=== PATIENT | male | born 1985 | race Caucasian/White ===

== ENCOUNTER 2019-08-29 08:43 | Emergency (ER) | payer SELFPAY ==
--- NOTE | 2019-08-29 09:23 | ER ---
Nurse's Notes [facility] Name: Jerzy Hernandez Age: 34 yrs Sex: Male : 1985 Arrival Date: 08/29/2019 Time: 08:47 Bed 20 Private MD: None, None Diagnosis: Unilateral inguinal hernia, without obstruction or gangrene, recurrent Presentation: 08/29 09:10 Presenting complaint: Patient states: knot on right side of groin that comes out and em can get pushed in, painful when walking, also reports pain in back and right leg, reports he was told it was a hernia. Transition of care: patient was not received from another setting of care. Onset of symptoms was July 30, 2019. Risk Assessment: Do you want to hurt yourself or someone else? Patient reports no desire to harm self or others. Initial Sepsis Screen: Does the patient meet any 2 criteria? No. Patient's initial sepsis screen is negative. Does the patient have a suspected source of infection? No. Patient's initial sepsis screen is negative. Care prior to arrival: None. 09:10 Method Of Arrival: Ambulatory em 09:14 Acuity: NATASHA 4 iw Historical: - Allergies: 09:12 No Known Allergies; em - Home Meds: 09:12 None [Active]; em - PMHx: 09:12 Hernia; em - PSHx: 09:12 None; em - Immunization history:: Adult Immunizations up to date. - Social history:: Smoking status: Patient/guardian denies using tobacco. - Ebola Screening: : Patient negative for fever greater than or equal to 101.5 degrees Fahrenheit, and additional compatible Ebola Virus Disease symptoms Patient denies exposure to infectious person Patient denies travel to an Ebola-affected area in the 21 days before illness onset No symptoms or risks identified at this time. - Family history:: not pertinent. - Hospitalizations: : No recent hospitalization is reported. Screenin:14 Abuse screen: Denies threats or abuse. Nutritional screening: No deficits noted. em Tuberculosis screening: No symptoms or risk factors identified. Fall Risk None identified. Assessment: 09:15 General: Appears in no apparent distress. comfortable, Behavior is calm, cooperative, em Denies fever. Pain: Complains of pain in right femoral area Pain currently is 5 out of 10 on a pain scale. Neuro: Level of Consciousness is awake, alert, obeys commands, Oriented to person, place, time, situation, Appropriate for age. Cardiovascular: Capillary refill < 3 seconds Patient's skin is warm and dry. Respiratory: Airway is patent Respiratory effort is even, unlabored, Respiratory pattern is regular, symmetrical. GI: Abdomen is flat, Bowel sounds present X 4 quads. Abd is soft and non tender X 4 quads. Patient currently denies bloody stool, nausea, vomiting. Derm: Skin is intact, is healthy with good turgor, Skin is pink, warm \T\ dry. Musculoskeletal: Capillary refill < 3 seconds, Range of motion: intact in all extremities. Vital Signs: 09:12 BP 137 / 86; Pulse 88; Resp 18; Temp 98.7(O); Pulse Ox 98% on R/A; Weight 79.38 kg; em Height 6 ft. 2 in. (187.96 cm); Pain 5/10; 09:12 Body Mass Index 22.47 (79.38 kg, 187.96 cm) em ED Course: 08:47 Patient arrived in ED. mr 08:48 None, None is Private Physician. mr 08:49 Leighton Rhodes MD is Attending Physician. rn 08:52 Hever Batres LVN is Primary Nurse. em 09:12 Arm band placed on. em 09:14 Triage completed. iw 09:14 Patient has correct armband on for positive identification. Placed in gown. Bed in low em position. Call light in reach. 09:22 Ramon Shah MD is Referral Physician. rn 09:26 No provider procedures requiring assistance completed. Patient did not have IV access em during this emergency room visit. Administered Medications: No medications were administered Outcome: 09:22 Discharge ordered by . rn 09:26 Discharged to home ambulatory. em 09:26 Condition: good 09:26 Discharge instructions given to patient, Instructed on discharge instructions, follow up and referral plans. Demonstrated understanding of instructions, follow-up care. 09:37 Patient left the ED. em Signatures: Radha Reza mr Hever Batres LVN POT MAKER em Gabriela Cespedes RN RN iw Leighton Rhodes MD MD rn
--- NOTE | 2019-08-29 09:23 | EDPHYS ---
Physician Documentation [facility] Name: Jerzy Hernandez Age: 34 yrs Sex: Male : 1985 Arrival Date: 08/29/2019 Time: 08:47 Bed 20 Private MD: None, None ED Physician Leighton Rhodes HPI: 08/29 09:18 This 34 yrs old Male presents to ER via Ambulatory with complaints of Pelvic rn Pain. 09:18 The patient presents with abdominal pain in the lower abdomen. Onset: The rn symptoms/episode began/occurred 1 month(s) ago. The symptoms do not radiate. Associated signs and symptoms: Pertinent negatives: nausea and vomiting, blood in stools, chest pain, constipation, diarrhea, dysuria, fever, hematuria, testicular pain, vomiting, vomiting blood. The symptoms are described as achy. Modifying factors: The symptoms are alleviated by nothing, the symptoms are aggravated by nothing. The patient has experienced similar episodes in the past. Reports right inguinal pain, intermittent, has noticed what he thinks is a hernia get larger, still goes back in, no vomiting/fever/pain elsewhere. Lifts a lot at work. . Historical: - Allergies: 09:12 No Known Allergies; em - Home Meds: 09:12 None [Active]; em - PMHx: 09:12 Hernia; em - PSHx: 09:12 None; em - Immunization history:: Adult Immunizations up to date. - Social history:: Smoking status: Patient/guardian denies using tobacco. - Ebola Screening: : Patient negative for fever greater than or equal to 101.5 degrees Fahrenheit, and additional compatible Ebola Virus Disease symptoms Patient denies exposure to infectious person Patient denies travel to an Ebola-affected area in the 21 days before illness onset No symptoms or risks identified at this time. - Family history:: not pertinent. - Hospitalizations: : No recent hospitalization is reported. ROS: 09:18 Constitutional: Negative for fever, chills, and weight loss, Eyes: Negative for injury, rn pain, redness, and discharge, Cardiovascular: Negative for chest pain, palpitations, and edema, Respiratory: Negative for shortness of breath, cough, wheezing, and pleuritic chest pain, Abdomen/GI: Negative for abdominal pain, nausea, vomiting, diarrhea, and constipation, MS/Extremity: Negative for injury and deformity, Skin: Negative for injury, rash, and discoloration, Neuro: Negative for headache, weakness, numbness, tingling, and seizure. Exam: 09:18 Constitutional: This is a well developed, well nourished patient who is awake, alert, rn and in no acute distress. Abdomen/GI: soft, non-tender, + right inguinal hernia, easily reducible without skin changes. Male : Normal genitalia with no discharge or lesions. Vital Signs: 09:12 BP 137 / 86; Pulse 88; Resp 18; Temp 98.7(O); Pulse Ox 98% on R/A; Weight 79.38 kg; em Height 6 ft. 2 in. (187.96 cm); Pain 5/10; 09:12 Body Mass Index 22.47 (79.38 kg, 187.96 cm) em MDM: 08:50 Patient medically screened. rn 09:18 Differential diagnosis: non-specific abd pain, right inguinal hernia. Data reviewed: rn vital signs, nurses notes, and as a result, I will discharge patient. Counseling: I had a detailed discussion with the patient and/or guardian regarding: the historical points, exam findings, and any diagnostic results supporting the discharge/admit diagnosis, the need for outpatient follow up, to return to the emergency department if symptoms worsen or persist or if there are any questions or concerns that arise at home. ED course: No need for emergent hernia repair, easily reducible, will dc home with surgery f/u for elective repair.. Administered Medications: No medications were administered Disposition: 08/29/19 09:22 Discharged to Home. Impression: Unilateral inguinal hernia, without obstruction or gangrene, recurrent. - Condition is Stable. - Discharge Instructions: Inguinal Hernia, Adult, [id number], Inguinal Hernia, Adult. - Medication Reconciliation Form, Thank You Letter, Antibiotic Education, Prescription Opioid Use form. - Follow up: Ramon Shah MD; When: As needed; Reason: Recheck today's complaints, Re-evaluation by your physician. - Problem is an ongoing problem. - Symptoms have improved. Signatures: Hever Batres, [employer]IM[employer] SHELTER CLERK em Leighton Rhodes MD MD furnace repairer helper: (The following items were deleted from the chart) 09:37 09:22 08/29/2019 09:22 Discharged to Home. Impression: Unilateral inguinal hernia, em without obstruction or gangrene, recurrent. Condition is Stable. Forms are Medication Reconciliation Form, Thank You Letter, Antibiotic Education, Prescription Opioid Use. Follow up: Ramon Shah; When: As needed; Reason: Recheck today's complaints, Re-evaluation by your physician. Problem is an ongoing problem. Symptoms have improved. rn
[2019-08-29 09:47] VITALS: BP 137/86; TEMP 98.7; O2SAT 98
== END 2019-08-29 09:37 | disposition home or self-care (01) ==
LOC: ER 08:43
DX: K40.91 Unilateral inguinal hernia, without obstruction or gangrene, recurrent (principal)
CPT/HCPCS: 99281